=== PATIENT | male | born 1955 | race Caucasian/White ===

== ENCOUNTER 2019-03-16 10:57 | Inpatient (IN) | payer MEDICARE, OTHER ==
[~2019-03-16] VITALS: Ht 188 cm; Wt 89.8 kg
--- NOTE | 2019-03-16 11:00 | NUR ---
PT [id number], HOMELESS, PICKED UP AT THE [facility] TALKING TO HIMSELF, -SI, PT IS AAOX2, NOT IN RESPIRATORY DISTRESS, HOOKED TO MONITOR, KEPT RESTED AND COMFORTABLE. WILL CONTINUE TO MONITOR.
--- NOTE | 2019-03-16 11:02 | NUR ---
SEEN AND EXAMINED BY .
[2019-03-16] MEDS ORDERED: OLANZAPINE 10 MG VIAL IM ONE ×2 (11:10→11:30)
--- NOTE | 2019-03-16 11:10 | NUR ---
ER PHLEB AT BEDSIDE FOR BLOOD DRAW.
[2019-03-16 11:13] LABS: BASOPHILS # (AUTO) 0.1 /CMM (0.0-0.2); EOSINOPHILS % (AUTO) 0.2 % (0.0-6.0); HEMATOCRIT 40 % (39-51); HEMOGLOBIN 12.9 g/dL (13.5-17.5); LYMPHOCYTES # (AUTO) 1.2 /CMM (0.8-4.8); LYMPHOCYTES % (AUTO) 10.6 % (20.0-44.0); MEAN CORPUSCULAR HGB CONC 33 g/dl (31.0-36.0); MEAN CORPUSCULAR VOLUME 94 fL (80-96); MONOCYTES % (AUTO) 8.5 % (2.0-12.0); NEUTROPHILS # (AUTO) 9.1 /CMM (1.8-8.9); NEUTROPHILS % (AUTO) 79.7 % (43.0-81.0); PLATELET COUNT (AUTO) 259 /CMM (150-450); RED BLOOD CELL COUNT(AUTO) 4.22 MIL/uL (4.5-6.0); WHITE BLOOD COUNT (AUTO) 11.4 K/uL (4.3-11.0)
[2019-03-16 11:21] LABS: CALCIUM, SERUM 8.8 mg/dL (8.5-10.1); CARBON DIOXIDE 21 mmol/L (21-32); CHLORIDE 110 mmol/L (98-107); GLUCOSE 171 mg/dL (74-106); POTASSIUM 4.6 mmol/L (3.5-5.1); SODIUM SERUM 150 mmol/L (136-145); UREA NITROGEN, BLOOD 61 mg/dL (7-18)
[2019-03-16 11:23] LABS: CREATININE 7.7 mg/dL (0.6-1.3)
[2019-03-16 11:26] LABS: ALANINE AMINOTRANSFERASE 32 U/L (12-78); ALBUMIN 4.7 g/dL (3.4-5.0); ALKALINE PHOSPHATASE 110 U/L (46-116); ASPARTATE AMINOTRANSFERASE 191 U/L (15-37); BILIRUBIN,DIRECT 0.2 mg/dL (0.0-0.2); BILIRUBIN,TOTAL 1.1 mg/dL (0.2-1.0); TOTAL PROTEIN, SERUM 9.2 g/dL (6.4-8.2)
[2019-03-16 11:27] LABS: ACETAMINOPHEN 0 ug/ml (10-30); ALCOHOL, BLOOD < 3 mg/dL (0-0)
[2019-03-16] MEDS ORDERED: IV NS 0.9% 1,000 ML BAG IV ONE ×2 (11:30→12:30)
[2019-03-16] MEDS ORDERED: LORAZEPAM INJ 2 MG/ML VIAL ONE (11:30)
--- NOTE | 2019-03-16 11:45 | NUR ---
IV LINE ESTABLISHED.
[2019-03-16] MEDS ORDERED: LORAZEPAM INJ 2 MG/ML VIAL IV ONE ×2 (12:00→23:00)
[2019-03-16 12:10] LABS: APPEARANCE,URINE Cloudy (CLEAR); BILIRUBIN,URINE SMALL (NEGATIVE); BLOOD, URINE Moderate Ery/uL (NEGATIVE); COLOR,URINE Dark (YELLOW); KETONES,URINE Trace (NEGATIVE); LEUKOCYTE ESTERASE ,URINE Trace (NEGATIVE); NITRITE, URINE Negative (NEGATIVE); PROTEIN,URINE 100 mg/dl (NEGATIVE); UGLUCOSE Negative (NEGATIVE); UROBILINOGEN,URINE 0.2 EU/dL (0.2)
[2019-03-16 12:15] LABS: BACTERIA,URINE Rare /HPF (None Seen); SQUAMOUS EPITHELIAL CELL,UR Rare /HPF (None Seen)
--- NOTE | 2019-03-16 12:33 | NUR ---
CALLED [facility], ALMA CHACKO
--- NOTE | 2019-03-16 12:49 | NUR ---
117-2 TELE RENAL FAILURE, RICCO
--- NOTE | 2019-03-16 12:55 | NUR ---
REPORT GIVEN TO UZIEL QUINTANILLA FOR JULIANA. WITH ONGOING IVF.
[2019-03-16] MEDS ORDERED: IV D5W 1,000 ML IV ONE (12:59)
--- NOTE | 2019-03-16 13:05 | NUR ---
CALLED [facility]
[2019-03-16] MEDS ORDERED: Sodium Bicarbonate 150 MEQ in IV D5W 1,000 ML IV ONE (13:30)
--- NOTE | 2019-03-16 13:49 | NUR ---
CALLED [facility]
[2019-03-16 14:00] VITALS: BP 112/59
--- NOTE | 2019-03-16 14:00 | NUR ---
CATALOG LIBRARIAN NOTES PATIENT CAME IN VIA GURNEY. SEDATED IN THE ER. REPORT GIVEN TO OUR CN, JESSE FROM [facility] ER NURSE. REPORT AT BEDSIDE GIVEN WELL. PATIENT IS HOMELESS. ON TELE MONITOR, SR AT 75. FEW ABRASIONS NOTED, LEFT KNEE AND RIGHT ELBOW. POSITIVE FOR AMPHETAMINES. ADMISSION ORDERS PENDING, TRYING TO CONTACT DR CHACKO FOR ORDERS. BED LOCKED AND IN LOWEST POSITION. CALL LIGHT WITHIN REACH. WILL CONTINUE TO MONITOR CLOSELY
[2019-03-16] MEDS ORDERED: MAG HYDROX/AL HYDROX/SIMETH 30 ML UDC PO PRN (14:30)
[2019-03-16] MEDS ORDERED: ONDANSETRON HCL/PF 4 MG/2 ML VIAL IVP PRN (14:30)
[2019-03-16] MEDS ORDERED: MAGNESIUM HYDROXIDE 30 ML UDC PO PRN (14:30)
[2019-03-16] MEDS ORDERED: Z GUARD REMEDY 2 OZ OINT TP PRN (14:30)
--- NOTE | 2019-03-16 14:53 | NUR ---
RN NOTE RECEIVED ADMITTING ORDERS. PATIENT NPO FOR NOW. ADMITTING DX ACUTE RHABDOMYOLYSIS. NEPHRO CONSULT AND PSYCH EVAL PENDING.
[2019-03-16 16:00] VITALS: BP 105/52
--- NOTE | 2019-03-16 19:03 | NUR ---
RN CLOSING NOTE PATIENT STILL ASLEEP, NA BICARB STILL RUNNING AT 200ML/HR. NO SIGNS OF ANY SOB NOR PAIN AT THIS TIME. NO MEDS GIVEN. 1:1 SITTER. BED LOCKED AND IN LOWEST POSITION. CALL LIGHT WITHIN REACH. ENDORSED TO NOC SHIFT FOR JULIANA
[2019-03-16] MEDS: Sodium Bicarbonate 100 MEQ in IV D5W 1,000 ML IV PRN (19:59)
[2019-03-16 20:00] VITALS: BP 112/69
--- NOTE | 2019-03-16 22:46 | NUR ---
TELE-TD/PHOTOGRAPHIC SPECIALIST DIAZ CATH PLACED VIA STERILE PROCEDURE PT TOLERATED BUT IS VERY RESTLESS. URINE SENT TO LAB FOR WORK UP.
[2019-03-16 23:06] LABS: ALBUMIN 3.8 g/dL (3.4-5.0); BILIRUBIN,TOTAL 1.1 mg/dL (0.2-1.0); CALCIUM, SERUM 7.5 mg/dL (8.5-10.1); CREATININE 5.5 mg/dL (0.6-1.3); MAGNESIUM 2.2 mg/dL (1.8-2.4); POTASSIUM 3.2 mmol/L (3.5-5.1); TOTAL PROTEIN, SERUM 7.6 g/dL (6.4-8.2)
[2019-03-16 23:22] LABS: APPEARANCE,URINE SL CLOUDY (CLEAR); BILIRUBIN,URINE 1+ (NEGATIVE); BLOOD, URINE 3+ Ery/uL (NEGATIVE); COLOR,URINE AMBER (YELLOW); KETONES,URINE TRACE (NEGATIVE); LEUKOCYTE ESTERASE ,URINE NEGATIVE (NEGATIVE); NITRITE, URINE NEGATIVE (NEGATIVE); PH,URINE 5.5 (5.0-8.0); PROTEIN,URINE 3+ mg/dl (NEGATIVE); UGLUCOSE NEGATIVE (NEGATIVE); UROBILINOGEN,URINE 0.2 EU/dL (0.2)
[2019-03-16 23:30] LABS: BACTERIA,URINE Few /HPF (None Seen); SQUAMOUS EPITHELIAL CELL,UR Few /HPF (None Seen)
[2019-03-16 23:34] LABS: CREATININE, URINE 241.1 MG/DL (30.0-125.0); URINE TOTAL PROTEIN 270.8 mg/dL (0-11.9)
[2019-03-17] VITALS: BP 97/53
[2019-03-17 00:15] LABS: EOSINOPHIL,URINE None Seen
[2019-03-17 04:00] VITALS: BP 121/65
[2019-03-17] MEDS: Sodium Bicarbonate 100 MEQ in IV D5W 1,000 ML IV PRN ×2 (04:26→14:16)
[2019-03-17 07:11] LABS: ALBUMIN 3.4 g/dL (3.4-5.0); BILIRUBIN,TOTAL 1.1 mg/dL (0.2-1.0); CALCIUM, SERUM 7.5 mg/dL (8.5-10.1); CREATININE 4.2 mg/dL (0.6-1.3); MAGNESIUM 2.1 mg/dL (1.8-2.4); PHOSPHORUS 3.7 mg/dL (2.5-4.9); POTASSIUM 3.3 mmol/L (3.5-5.1)
--- NOTE | 2019-03-17 07:47 | NUR ---
RN NOTE: RECEIVED PATIENT IN BED, AWAKE, ALERT AND VERBALLY RESPONSIVE. RESPIRATION EVEN AND UNLABORED SATURATING 100% IN ROOM AIR. DENIED ANY PAIN. ON ROPE MAKING MACHINE OPERATOR SR HR= 71. PATIENT HAS A (R) AC IV SITE INFUSING D5W SODIUM BICARBONATE 100 MEQ AND PATIENT WAS TOLERATING IT WELL. AFEBRILE. SKIN WARM TO TOUCH. BED ALARMED AND LOCKED AT ALL TIMES. HOB ELEVATED. 1:1 SITTER NOTED. CALL LIGHT WITHIN REACH NEEDS ANTICIPATED.
[2019-03-17 07:48] LABS: BASOPHILS % (AUTO) 0.5 % (0.0-2.0); EOSINOPHILS % (AUTO) 0.7 % (0.0-6.0); HEMATOCRIT 36 % (39-51); HEMOGLOBIN 11.9 g/dL (13.5-17.5); LYMPHOCYTES # (AUTO) 1.5 /CMM (0.8-4.8); LYMPHOCYTES % (AUTO) 19.9 % (20.0-44.0); MEAN CORPUSCULAR HGB CONC 33 g/dl (31.0-36.0); MEAN CORPUSCULAR VOLUME 91 fL (80-96); MONOCYTES # (AUTO) 0.7 /CMM (0.1-1.30); NEUTROPHILS # (AUTO) 5.3 /CMM (1.8-8.9); NEUTROPHILS % (AUTO) 69.9 % (43.0-81.0); PLATELET COUNT (AUTO) 127 /CMM (150-450); RED BLOOD CELL COUNT(AUTO) 3.92 MIL/uL (4.5-6.0); WHITE BLOOD COUNT (AUTO) 7.6 K/uL (4.3-11.0)
[2019-03-17 08:00] VITALS: BP 103/43
--- NOTE | 2019-03-17 09:32 | NUR ---
RN NOTE: DR. BURDICK MADE ROUND AND INFORMED HIM THAT PATIENT WAS MORE AWAKE AND ALERT AND VERBALLY RESPONSIVE SINCE THE BEGINNING OF THE SHIFT. PER MD, OK TO START WITH FOOD AND A PSYCH CONSULT WAS ORDERED. CALLED AND SPOKE WITH ADDIE FROM [employer] AND INFORMED THEM ABOUT THE CONSULT FOR THE PATIENT. FACE SHEET WAS FAXED TO [facility] FAX #: [phone].
[2019-03-17] MEDS ORDERED: POTASSIUM CL. PREMIX PERIPHER. 50 ML IV SCH (09:34)
--- NOTE | 2019-03-17 10:15 | NUR ---
RN NOTE: US OF THE KIDNEYS WERE DONE AT THE BEDSIDE. PENDING RESULT.
[2019-03-17] MEDS ORDERED: POTASSIUM CHLORIDE 20 MEQ POWDER PACKET GT ONE (11:00)
--- NOTE | 2019-03-17 11:03 | NUR ---
RN NOTE: CALLED AND SPOKE WITH DR. BURDICK REGARDING THE PATIENT'S POTASSIUM OF 3.3 SARINA PENA, PHARMACIST CALLED AND SAID THAT DUE TO PATIENT'S ELEVATED BUN/CREATININE THE PHARMACY CAN NOT REPLACE IT PER PROTOCOL. DR. BURDICK WAS INFORMED THAT PATIENT RECEIVED A KCL 10MEQ IV X 1 BAG. AND PER MD, GIVE A KCL 20MEQ PO X1. ORDER NOTED AND CARRIED OUT. PATIENT MADE AWARE.
[2019-03-17] MEDS ORDERED: POTASSIUM CHLORIDE 20 MEQ TAB.PRT.SR PO ONE (11:30)
--- NOTE | 2019-03-17 11:44 | NUR ---
Social service consult requested by Dr. Mcdaniel for homelessness. Pt. is a 63 year old male who was admitted to [facility] for renal failure. STEVE met with pt. bedside. Pt. has a sitter bedside for safety. Pt. is alert and oriented x 3. Pt. states he is not homeless and rents a room at [address] in [facility]. Pt. has been living there for the past 2 to 3 months. Pt. would like to be discharged back home when medically cleared. Pt. denies suicidal and homicidal ideations and visual/auditory hallucinations at this time. Pt. states he has a diagnosis of Depression and takes medication but could not remember what they are. Pt. is pending a psychiatric evaluation. Pt. receives $1800/month in SSI. Pt. denies any drug or alcohol use. No other social service needs are requested at this time. SW is available, if needed. STEVE updated KAYLYN Patel regarding pt. not being homeless.
[2019-03-17 16:00] VITALS: BP 116/66
--- NOTE | 2019-03-17 19:46 | NUR ---
RN NOTE: BEDSIDE REPORT WAS GIVEN TO PM SHIFT NURSE FOR CONTINUITY OF CARE. PATIENT HAS BEEN VERY COOPERATIVE DURING THE DAYSHIFT. NO MORE SITTER AT THE BEDSIDE. BED ALARMED AND PATIENT ON CLOSE MONITORING WITH STAFF.
[2019-03-17 20:00] VITALS: BP 111/66
--- NOTE | 2019-03-17 20:27 | NUR ---
was seen by social service director for eval. Pt. is alert and oriented x 3. Pt. states he is not homeless and rents a room at [address] [facility] in [facility]. Pt. has been living there for the past 2 to 3 months. Pt. would like to be discharged back home when medically cleared. Pt. denies suicidal and homicidal ideations and visual/auditory hallucinations at this time. Pt. states he has a diagnosis of Depression and takes medication but could not remember what they are. Pt. is pending a psychiatric evaluation. Pt. receives $1800/month in SSI. Pt. denies any drug or alcohol use. Addendum: 03/17/19 at 2027 by KARLEY CODY RN Amended: Links added.
[2019-03-18] MEDS: Sodium Bicarbonate 100 MEQ in IV D5W 1,000 ML IV PRN (01:24)
[2019-03-18 04:00] VITALS: BP 136/72
[2019-03-18] MEDS: ACETAMINOPHEN 325 MG TABLET PO PRN ×2 (05:10→16:16)
[2019-03-18 06:24] LABS: BASOPHILS % (AUTO) 0.5 % (0.0-2.0); EOSINOPHILS % (AUTO) 0.6 % (0.0-6.0); HEMATOCRIT 32 % (39-51); HEMOGLOBIN 10.9 g/dL (13.5-17.5); LYMPHOCYTES # (AUTO) 1.2 /CMM (0.8-4.8); LYMPHOCYTES % (AUTO) 16.8 % (20.0-44.0); MEAN CORPUSCULAR HGB CONC 34 g/dl (31.0-36.0); MEAN CORPUSCULAR VOLUME 91 fL (80-96); MONOCYTES # (AUTO) 0.6 /CMM (0.1-1.30); NEUTROPHILS # (AUTO) 5.5 /CMM (1.8-8.9); NEUTROPHILS % (AUTO) 74.1 % (43.0-81.0); PLATELET COUNT (AUTO) 165 /CMM (150-450); RED BLOOD CELL COUNT(AUTO) 3.52 MIL/uL (4.5-6.0); WHITE BLOOD COUNT (AUTO) 7.4 K/uL (4.3-11.0)
[2019-03-18 06:58] LABS: ALBUMIN 2.9 g/dL (3.4-5.0); BILIRUBIN,TOTAL 0.6 mg/dL (0.2-1.0); CALCIUM, SERUM 7.7 mg/dL (8.5-10.1); CREATININE 1.8 mg/dL (0.6-1.3); MAGNESIUM 1.9 mg/dL (1.8-2.4); PHOSPHORUS 1.9 mg/dL (2.5-4.9); TOTAL PROTEIN, SERUM 6.5 g/dL (6.4-8.2)
--- NOTE | 2019-03-18 07:39 | NUR ---
RN OPENING NOTES RECEIVED PATIENT RESTING IN BED. HE IS AOX3, VERBAL, AND IS ANXIOUS TO GO HOME. HE IS EXPERIENCING LIP SMACKING BASED ON MY ASSESSMENT. HE IS ON RA, SHOWS NO S/SX OF SOB. HE HAS A FC, INTACT, PATENT. HE IS ON A MECHANICAL SOFT DIET, WILL MONITOR FOR ASPIRATION. RFA 18 G INFUSING D5W WITH 100 MEQ OF BICARB AT 125 ML/HR. PSYCH CONSULT PENDING. SAFETY MEASURES HAVE BEEN IMPLEMENTED, CALL LIGHT WITHIN REACH, BED IN LOWEST AND LOCKED POSITION, SIDE RAILS UP X2, WILL CONTINUE TO MONITOR FOR ANY CHANGES.
[2019-03-18 08:00] VITALS: BP 141/69
[2019-03-18] MEDS ORDERED: POTASSIUM PHOSPHATE MM 5 MMOL in IV D5W 100 ML IV SCH (09:00)
[2019-03-18] MEDS ORDERED: POTASSIUM PHOSPHATE MM 15 MMOL in IV D5W 250 ML IV SCH (09:00)
[2019-03-18] MEDS: POTASSIUM CHLORIDE 20 MEQ TAB.PRT.SR PO SCH (09:10)
[2019-03-18] MEDS: GABAPENTIN 300 MG CAPSULE PO SCH ×3 (09:10→17:36)
[2019-03-18] MEDS: POTASSIUM PHOSPHATE MM 7.5 MMOL in IV D5W 100 ML IV SCH ×2 (09:23→12:56)
[2019-03-18] MEDS: LORAZEPAM 1 MG TABLET PO PRN ×3 (11:43→18:44)
[2019-03-18 12:00] VITALS: BP 141/69
--- NOTE | 2019-03-18 13:30 | NUR ---
PATIENT HAS BEEN SEEN BY DR. CARRION
[2019-03-18] MEDS: QUETIAPINE FUMARATE 25 MG TABLET PO PRN ×2 (13:44→19:29)
[2019-03-18 16:00] VITALS: BP 141/63
--- NOTE | 2019-03-18 19:56 | NUR ---
PATIENT IS RESTING IN BED COMFORTABLY. HE WAS ANXIOUS AND RESTLESS ALL THROUGHOUT THE DAY. SAFETY MEASURES HAVE BEEN IMPLEMENTED, CALL LIGHT WITHIN REACH, BED IN LOWEST AND LOCKED POSITION, SIDE RAILS UP X2, PATIENT HAS BEEN ENDORSED TO NIGHTSHIFT NURSE.
[2019-03-18 20:00] VITALS: BP 134/80
[2019-03-18] MEDS ORDERED: LORAZEPAM INJ 2 MG/ML VIAL IV ONE (20:30)
[2019-03-19 04:00] VITALS: BP 155/85
--- NOTE | 2019-03-19 07:35 | NUR ---
MS/RN OPENING NOTES RECEIVED PATIENT IN BED SLEEPING COMFORTABLY. EASILY AROUSABLE. PATIENT IS ALERT AND ORIENTED X3. NO PAIN OR ACUTE DISTRESS AT THIS TIME. RESPIRATION EVEN AND UNLABORED. SKIN IS DRY WARM TO TOUCH. PATIENT NOTED WITH FC, INTACT AND PATENT. IV ACCESS ON RIGHT FA #18G. INTACT AND PATENT. FLUSHING WELL. NO S/S OF INFECTION OR INFILTRATION. ALL NEEDS ANTICIPATED. CALL LIGHT WITHIN REACHED. BED LOCKED AND IN LOWEST POSITION. SAFETY MAINTAINED. BED ALARM ARMED. FREQUENT VISUAL CHECKS. PLAN OF CARE DISCUSSED WITH PATIENT. WILL CONTINUE TO MONITOR CLOSELY.
[2019-03-19 08:00] VITALS: BP 135/75
[2019-03-19 08:00] LABS: BASOPHILS % (AUTO) 0.6 % (0.0-2.0); EOSINOPHILS % (AUTO) 1.4 % (0.0-6.0); HEMATOCRIT 36 % (39-51); HEMOGLOBIN 12.1 g/dL (13.5-17.5); LYMPHOCYTES # (AUTO) 1.5 /CMM (0.8-4.8); LYMPHOCYTES % (AUTO) 22.6 % (20.0-44.0); MEAN CORPUSCULAR HGB CONC 34 g/dl (31.0-36.0); MEAN CORPUSCULAR VOLUME 92 fL (80-96); MONOCYTES # (AUTO) 0.5 /CMM (0.1-1.30); MONOCYTES % (AUTO) 7.8 % (2.0-12.0); NEUTROPHILS # (AUTO) 4.5 /CMM (1.8-8.9); NEUTROPHILS % (AUTO) 67.6 % (43.0-81.0); PLATELET COUNT (AUTO) 175 /CMM (150-450); RED BLOOD CELL COUNT(AUTO) 3.91 MIL/uL (4.5-6.0); WHITE BLOOD COUNT (AUTO) 6.6 K/uL (4.3-11.0)
[2019-03-19 08:32] LABS: BILIRUBIN,TOTAL 0.6 mg/dL (0.2-1.0); CALCIUM, SERUM 8.3 mg/dL (8.5-10.1); CREATININE 1.2 mg/dL (0.6-1.3); MAGNESIUM 1.7 mg/dL (1.8-2.4); POTASSIUM 3.6 mmol/L (3.5-5.1); TOTAL PROTEIN, SERUM 6.9 g/dL (6.4-8.2)
[2019-03-19] MEDS: LORAZEPAM 1 MG TABLET PO PRN (09:19)
[2019-03-19] MEDS: QUETIAPINE FUMARATE 25 MG TABLET PO PRN (09:19)
[2019-03-19] MEDS: GABAPENTIN 300 MG CAPSULE PO SCH ×2 (09:19→12:17)
[2019-03-19] MEDS: POTASSIUM CHLORIDE 20 MEQ TAB.PRT.SR PO SCH (09:19)
--- NOTE | 2019-03-19 10:20 | NUR ---
MS/ RN NOTES DIAZ CATHETER WAS REMOVED PER DR. BURDICK, AND ALSO TO MONITOR IF PATIENT WILL BE ABLE TO VOID ON HIS OWN. PATIENT CONTINUES TO REMAIN IN STABLE CONDITION AT THIS TIME. WILL CONTINUE TO MONITOR.
[2019-03-19] MEDS ORDERED: K PHOS NEUTRAL 250 MG TABLET PO ONE (11:00)
--- NOTE | 2019-03-19 11:00 | NUR ---
WOUND CARE CONSULT: PATIENT PRESENTS WITH LT KNEE ABRASION ,PRESENT ON ADMISSION, PATIENT STATED THAT HE FALL FEW DAYS AGO CURRENT HEIDE SCORE 15 , TREATMENT RECOMMENDATION DONE AND DISCUSSED WITH NURSING STAFF , IN AGREEMENT WITH PLAN OF CARE ,F\C IN PLACE Addendum: 03/19/19 at 1109 by ALOK CHAIREZ RN Amended: Links added.
--- NOTE | 2019-03-19 15:30 | NUR ---
MS/APPRENTICESHIP TRAINING REPRESENTATIVE NOTES PATIENT WAS HELPED DRESS TO PREPARE FOR DISCHARGE. PATIENT WAS GIVEN PANTS FROM [facility]. DISCHARGE PAPERS WAS GIVEN AND WAS SIGNED BY PATIENT. SKIN ASSESSMENT DONE. PHOTOS WAS TAKEN AND WAS PLACED IN THE CHART. PATIENT WAS ACCOMPANIED TO THE LOBBY OF THE HOSPITAL. PATIENT ABLE TO AMBULATE BY HIMSELF. LEFT THE HOSPITAL IN STABLE CONDITION.
== END 2019-03-19 15:10 | disposition home or self-care (01) | DRG 557 ==
LOC: ER 10:59 → TELE1 12:57 → TELE-TD 13:07 → MEDSG1 03-17 10:04
PROVIDERS: ADMIT Internal Medicine; ATTEND Internal Medicine
DX: M62.82 Rhabdomyolysis (principal); N17.0 Acute kidney failure with tubular necrosis; E87.0 Hyperosmolality and hypernatremia; F23 Brief psychotic disorder; G61.81 Chronic inflammatory demyelinating polyneuritis; F32.9 Major depressive disorder, single episode, unspecified; Z59.0 Homelessness; N18.9 Chronic kidney disease, unspecified; I12.9 Hypertensive chronic kidney disease with stage 1 through stage 4 chronic kidney disease, or unspecified chronic kidney disease; R74.0 Nonspecific elevation of levels of transaminase and lactic acid dehydrogenase [LDH]; Z72.89 Other problems related to lifestyle; F25.9 Schizoaffective disorder, unspecified; G89.29 Other chronic pain
CPT/HCPCS: 36415; 76770-TC; 80048-TC; 80053-TC; 80061-TC; 80076-TC; 80305; 81000-TC; 82550-TC; 82570-TC; 83735-TC; 84100-TC; 84155-TC; 84300-TC; 84484-TC; 85025-TC; 87081-TC; 87086-TC; 87186-TC; G0378; G0480; J2060; J3480; J3490; J7030; J7060; J7070

== ENCOUNTER 2019-08-02 18:55 | Inpatient (IN) | payer MEDICARE, OTHER ==
[~2019-08-02] VITALS: Ht 185.4 cm; Wt 89.4 kg
--- NOTE | 2019-08-02 19:15 | NUR ---
PT CAME INTO THE ED FOR RECTAL BLEED, +NV, WEAKNESS SINCE THIS MORNING. PT AAOX4, VSS, BREATHING EVEN AND UNLABORED ON ROOM AIR W/ NAD NOTED. PT CONNECTED TO THE MONITOR AND POX.
[2019-08-02] MEDS ORDERED: ONDANSETRON HCL/PF 4 MG/2 ML VIAL ONE (19:23)
[2019-08-02] MEDS ORDERED: IV NS 0.9% 1,000 ML BAG IV ONE ×2 (19:30→20:30)
[2019-08-02] MEDS ORDERED: ONDANSETRON HCL/PF 4 MG/2 ML VIAL IVP ONE (19:30)
[2019-08-02 19:38] LABS: BASOPHILS # (AUTO) 0.1 /CMM (0.0-0.2); BASOPHILS % (AUTO) 0.7 % (0.0-2.0); EOSINOPHILS % (AUTO) 0.1 % (0.0-6.0); HEMATOCRIT 32 % (39-51); HEMOGLOBIN 10.8 g/dL (13.5-17.5); LYMPHOCYTES % (AUTO) 12.9 % (20.0-44.0); MEAN CORPUSCULAR HGB CONC 34 g/dl (31.0-36.0); MEAN CORPUSCULAR VOLUME 93 fL (80-96); MONOCYTES # (AUTO) 0.5 /CMM (0.1-1.30); MONOCYTES % (AUTO) 7.1 % (2.0-12.0); NEUTROPHILS # (AUTO) 5.9 /CMM (1.8-8.9); NEUTROPHILS % (AUTO) 79.2 % (43.0-81.0); PLATELET COUNT (AUTO) 212 /CMM (150-450); RED BLOOD CELL COUNT(AUTO) 3.47 MIL/uL (4.5-6.0); WHITE BLOOD COUNT (AUTO) 7.4 K/uL (4.3-11.0)
[2019-08-02 19:48] LABS: CALCIUM, SERUM 9.2 mg/dL (8.5-10.1)
[2019-08-02 19:53] LABS: BILIRUBIN,DIRECT 0.1 mg/dL (0.0-0.2); BILIRUBIN,TOTAL 0.9 mg/dL (0.2-1.0); TOTAL PROTEIN, SERUM 8.7 g/dL (6.4-8.2)
[2019-08-02 20:14] LABS: OCCULT BLOOD STOOL NEGATIVE (NEGATIVE)
--- NOTE | 2019-08-02 20:15 | NUR ---
PT CHANGED INTO A NEW GOWN. DIARRHEA NOTED. MILD ODOR.
[2019-08-02] MEDS ORDERED: LORAZEPAM INJ 2 MG/ML VIAL ONE (20:30)
[2019-08-02] MEDS ORDERED: LORAZEPAM INJ 2 MG/ML VIAL IV ONE (20:30)
--- NOTE | 2019-08-02 20:52 | NUR ---
PT TAKEN TO CT
--- NOTE | 2019-08-02 20:59 | NUR ---
PT BACK FROM CT
--- NOTE | 2019-08-02 21:52 | NUR ---
XRAY AT BEDSIDE
--- NOTE | 2019-08-02 22:02 | NUR ---
EKG AT BEDSIDE
[2019-08-02] MEDS ORDERED: ACETAMINOPHEN 325 MG TABLET PO PRN (23:00)
[2019-08-02] MEDS ORDERED: HYDROCODONE/APAP 5/325MG 1 EACH TABLET PO PRN (23:00)
[2019-08-02] MEDS ORDERED: Z GUARD REMEDY 2 OZ OINT TP PRN (23:00)
[2019-08-02] MEDS ORDERED: ONDANSETRON HCL/PF 4 MG/2 ML VIAL IVP PRN (23:00)
[2019-08-02] MEDS ORDERED: MAG HYDROX/AL HYDROX/SIMETH 30 ML UDC PO PRN (23:00)
[2019-08-02] MEDS ORDERED: ZOLPIDEM TARTRATE 5 MG TABLET PO PRN (23:00)
--- NOTE | 2019-08-02 23:27 | NUR ---
REPORT GIVEN TO UZIEL KAMARA
[2019-08-02 23:32] LABS: APPEARANCE,URINE Cloudy (CLEAR); BILIRUBIN,URINE SMALL (NEGATIVE); BLOOD, URINE Large Ery/uL (NEGATIVE); COLOR,URINE Brown (YELLOW); KETONES,URINE Trace (NEGATIVE); LEUKOCYTE ESTERASE ,URINE Negative (NEGATIVE); NITRITE, URINE Negative (NEGATIVE); PROTEIN,URINE >=300 mg/dl (NEGATIVE); UGLUCOSE Negative (NEGATIVE); UROBILINOGEN,URINE 0.2 EU/dL (0.2)
[2019-08-02 23:36] VITALS: BP 116/70
--- NOTE | 2019-08-02 23:36 | NUR ---
MICROBIOLOGY QUALITY CONTROL TECHNICIANHYDRAULIC PLUMBER NOTES Received patient from ER via [facility] accompanied by 2 ER staff. Admitted to Telemetry 323-2 due to rhabdomylosis under the service of Dr. Zapata. Transferred patient from [facility] to bed, patient noted ambulatory with steady gait. Admission routine done. Patient's belongings inventory completed by the assigned DIRECTOR OF ASSESSING. Skin assessment done, patient claimed not skin issues at this time, disseminated small skin abrasions noted. Kept on bed clean, dry and comfortable. No med recon done at ER, patient still in the process of writing down his medications. Initiated IVF as ordered. On fall and aspiration precautions. Call light within easy reach. Will continue to monitor accordingly.
--- NOTE | 2019-08-03 | NUR ---
TERMINAL PRESS OPERATOR NOTES On tele monitor with Sinus Tach noted, patient awake, uneasy in the room. Decreased stimuli, keep patient's room cool, decreased lights.
[2019-08-03] MEDS: IV NS 0.9% 1,000 ML IV PRN (00:21)
--- NOTE | 2019-08-03 00:33 | NUR ---
RN NOTES Instructed patient on stool collection for laboratory as ordered, patient verbalized understanding. Hat provided, placed in the bowl of patient's toilet.
[2019-08-03 00:41] LABS: BACTERIA,URINE Many /HPF (None Seen); SQUAMOUS EPITHELIAL CELL,UR Rare /HPF (None Seen)
--- NOTE | 2019-08-03 01:43 | NUR ---
RN NOTES Patient awake talking to self lying across the bed. Patient claimed he is fine and comfortable. Patient noted with blood all over the gown, IV line pulled out, complete and intact, pressure applied to the bleeding site. Patient walked to the bathroom, claimed he was asleep and he his not aware of what happened. Reinserted IV line, good blood return noted after 4 attempts. Secured with tape accordingly. On fall precautions. Kept bed low and locked, bed alarm on. Will continue to monitor accordingly.
--- NOTE | 2019-08-03 03:20 | NUR ---
RN NOTES Patient is acting out and claiming he can not sleep due to thought in his mind. Patient claimed he needs his medications but patient unable provide his list of meds. Patient claimed of sign out but per assessment patient is unsafe to be granted on his wish. Notified on sobeida Zapata with recommendation to call psych. Called Dr. Kumar with order of Temazepam 15mg PO QHS. Verified order with pharmacy. Initial dose given at this time.
[2019-08-03] MEDS: TEMAZEPAM 15 MG CAPSULE PO PRN ×2 (03:29→22:02)
[2019-08-03] MEDS ORDERED: SUVO20TA PO (04:20)
[2019-08-03] MEDS ORDERED: BUPR1TAB SL (04:20)
--- NOTE | 2019-08-03 05:14 | NUR ---
RN NOTES Patient pacing in the room and in the hallway, able to be redirected back to bed. Offered snacks and turn on TV to distract patient. Patient remained anxious and claiming having bizarre thoughts that prevents him from sleeping. Patient refused to share his thoughts. Patient claimed he has not plans of hurting himself. Will continue to monitor accordingly.
[2019-08-03] MEDS ORDERED: DOXE10OR2 PO (06:10)
--- NOTE | 2019-08-03 06:26 | NUR ---
IT INVESTMENT/PORTFOLIO MANAGER CLOSING NOTES Patient awake on bed, on RA. Patient pulled off, unsafe to resume at this time patient is still hyperactive in the room. IV line temporarily disconnected as patient is pacing and hyperactively roaming around the room back and forth. Patient is redirectable, able to obey commands but unable to ease himself and stayed calm on bed. Monitored accordingly. Patient mentioned medications he is taking, noted. Will endorsed to AM RN for reconciliation.
[2019-08-03 07:33] LABS: BASOPHILS # (AUTO) 0.1 /CMM (0.0-0.2); BASOPHILS % (AUTO) 0.8 % (0.0-2.0); EOSINOPHILS % (AUTO) 0.6 % (0.0-6.0); HEMATOCRIT 29 % (39-51); HEMOGLOBIN 9.8 g/dL (13.5-17.5); LYMPHOCYTES # (AUTO) 2.2 /CMM (0.8-4.8); MEAN CORPUSCULAR HGB CONC 34 g/dl (31.0-36.0); MEAN CORPUSCULAR VOLUME 91 fL (80-96); MONOCYTES # (AUTO) 0.7 /CMM (0.1-1.30); MONOCYTES % (AUTO) 8.6 % (2.0-12.0); NEUTROPHILS # (AUTO) 5.5 /CMM (1.8-8.9); PLATELET COUNT (AUTO) 197 /CMM (150-450); RED BLOOD CELL COUNT(AUTO) 3.16 MIL/uL (4.5-6.0); WHITE BLOOD COUNT (AUTO) 8.6 K/uL (4.3-11.0)
[2019-08-03 07:49] LABS: ALBUMIN 3.7 g/dL (3.4-5.0); BILIRUBIN,TOTAL 0.9 mg/dL (0.2-1.0); CALCIUM, SERUM 8.4 mg/dL (8.5-10.1); CREATININE 3.8 mg/dL (0.6-1.3); MAGNESIUM 1.8 mg/dL (1.8-2.4); POTASSIUM 4.3 mmol/L (3.5-5.1); TOTAL PROTEIN, SERUM 7.7 g/dL (6.4-8.2)
[2019-08-03 08:00] VITALS: BP 125/83
[2019-08-03] MEDS ORDERED: ROPI5TAB PO (12:04)
[2019-08-03] MEDS ORDERED: GABA800T11 PO (12:04)
[2019-08-03] MEDS ORDERED: ROSU5TAB PO (12:04)
[2019-08-03] MEDS ORDERED: DOXA4TAB2 PO (12:04)
[2019-08-03] MEDS ORDERED: DULO60CA45 PO (12:04)
[2019-08-03] MEDS ORDERED: ABAC1TAB15 PO (12:04)
[2019-08-03 16:00] VITALS: BP 146/84
[2019-08-03] MEDS: NICOTINE PATCH (21MG) 21 MG PATCH.TD24 TD SCH (17:30)
[2019-08-03] MEDS: LORAZEPAM INJ 2 MG/ML VIAL IV PRN (18:31)
--- NOTE | 2019-08-03 19:10 | NUR ---
MS RN OPENING NOTES Received patient awake, talking to self. Aggressively walking around the room. No sitter available at this time. Patient able to follow commands but unable to remain calm and stay in place. Will continue to monitor accordingly.
[2019-08-03 20:00] VITALS: BP 158/89
--- NOTE | 2019-08-03 20:26 | NUR ---
MS RN OPENING NOTES Patient noted washing his short pants in the sink. Per patient, he peed on his pants. Ensured spillage on the floor. Notified EVS to follow up cleaning the floor. Patient is aggressively walking around the room back and fort. Held IVF at this time for safety reason. Patient noted drinking fluids, provided more fluids for patient to take.
[2019-08-04] MEDS: LORAZEPAM INJ 2 MG/ML VIAL IV PRN ×2 (01:23→13:10)
[2019-08-04] MEDS ORDERED: HALOPERIDOL LACTATE INJ 5 MG/ML VIAL IV PRN (03:30)
--- NOTE | 2019-08-04 03:35 | NUR ---
MS RN NOTES Patient noted screaming on top of his lungs. Patient's head across the edge of bed while the lower extremities on the opposite side. Patient is jerking his whole body back and fort like a seesaw. Patient is not responding to tapping of shoulders. TECHNICAL EXPERT present in the room. Patient's head is about to hit the floor during his body jerking. Attempted to reposition patient back parallel to bed but patient was furious and became aggressive. Patient threw his pitcher of water with ice on the floor. Yelling on top of his lungs and very furious. Code nicole was called. Security guards able to put the patient back to bed. respiratory supervisor attempted to deescalate patient. physically impaired teacher MD notified with orders noted and carried out. Patient noted sitting on chair just outside his room angrily pointing to the nurse accusing of hitting him. Explained to patient the scenario just happened. Patient acknowledge is behavior and started to be apologetic. Guided patient back to bed, no physical force needed. Patient started to follow simple commands. Administered Haldol 2mg IV as ordered. Offered fluids to patient. Kept patient on bed comfortably. Notified head of loss prevention MD of the update, with order to held crisis team at this time. Will continue to monitor the patient accordingly.
--- NOTE | 2019-08-04 03:58 | NUR ---
MS RN NOTES Patient noted having a nightmare. Earlier the patient claimed he was dreaming that "somebody is attacking this building". Ensured patient's safety, kept patient on bed as much as possible to prevent from hitting himself to hard objects or on the floor. Patient is noted asleep while having the bizarre behavior. Will continue to monitor accordingly.
--- NOTE | 2019-08-04 06:35 | NUR ---
MS RN CLOSING NOTES Patient asleep on bed, with frequent screaming and body jerking. On RA, no SOB/respiratory distress noted at this time. No apparent s/sx of discomfort at this time. Kept on bed clean, dry and comfortable. On fall and aspiration precautions. Call light within easy reach. Endorsed to the next shift.
--- NOTE | 2019-08-04 07:30 | NUR ---
RN OPENING NOTES RECEIVED PATIENT IN BED ASLEEP WITH FREQUENT SCREAMING, PATIENT BEEN LIKE THIS NIGHT NURSE PER REPORT. NOT IN ANY FORM OF DISTRESS. NO SOB. NO S/S OF PAIN OR DISCOMFORT. IV ACCESS INTACT AND PATENT. SITTER AT BEDSIDE FOR SAFETY. BED IN LOW/LOCKED POSITION, BED ALARM ON, SIDERAILS UPX2, CALL LIGHT IN REACH. WILL CONT TO MONITOR ACCORDINGLY.
--- NOTE | 2019-08-04 08:00 | NUR ---
rn notes patient refused vital signs check. explained risk and benefits 3x but still refused. yelling " get out of here!" "i dont want anybody watching me in this room!". sitter present inside the room for safety.
[2019-08-04] MEDS: NICOTINE PATCH (21MG) 21 MG PATCH.TD24 TD SCH (09:00)
--- NOTE | 2019-08-04 09:00 | NUR ---
rn notes patient agitated. refused skin assessment at this time.
--- NOTE | 2019-08-04 09:15 | NUR ---
rn notes Patient was agitated and wanted to leave AMA. Asked patient the reason for wanting to leave AMA. Per patient, "i was asking for Bipap at night but they didnt give me the Bipap!". Patient signed AMA form.
--- NOTE | 2019-08-04 10:00 | NUR ---
rn notes patient changed his mind about leaving AMA. Will notify Claudy Greco NP about the Bipap
--- NOTE | 2019-08-04 10:27 | NUR ---
OTR OWNER OPERATOR received a call from pt's DPOA [place] Lance informing OTR OWNER OPERATOR that he wants to come to the hospital tomorrow at 2PM to discuss pt's discharge plan. Per JAMESON Lidno, pt. is unable to care for himself at home. Pt resides alone and has no assistance. Pt has been living alone for the 6 months and has been in bed most of the 6 months, per [place]. [facility] informed [place] that pt. is wanting to leave AMA and if he give him a call to perhaps encourage pt. to stay and not leave AMA. [place] will call the pt. and follow up with OTR OWNER OPERATOR.
[2019-08-04 12:44] LABS: BASOPHILS # (AUTO) 0.1 /CMM (0.0-0.2); BASOPHILS % (AUTO) 1.2 % (0.0-2.0); EOSINOPHILS % (AUTO) 1.4 % (0.0-6.0); HEMATOCRIT 29 % (39-51); HEMOGLOBIN 9.9 g/dL (13.5-17.5); LYMPHOCYTES # (AUTO) 1.3 /CMM (0.8-4.8); LYMPHOCYTES % (AUTO) 22.9 % (20.0-44.0); MEAN CORPUSCULAR HGB CONC 34 g/dl (31.0-36.0); MEAN CORPUSCULAR VOLUME 92 fL (80-96); MONOCYTES # (AUTO) 0.6 /CMM (0.1-1.30); MONOCYTES % (AUTO) 10.1 % (2.0-12.0); NEUTROPHILS # (AUTO) 3.7 /CMM (1.8-8.9); NEUTROPHILS % (AUTO) 64.4 % (43.0-81.0); PLATELET COUNT (AUTO) 194 /CMM (150-450); WHITE BLOOD COUNT (AUTO) 5.7 K/uL (4.3-11.0)
[2019-08-04 12:59] LABS: ALBUMIN 3.4 g/dL (3.4-5.0); BILIRUBIN,TOTAL 0.8 mg/dL (0.2-1.0); CALCIUM, SERUM 8.4 mg/dL (8.5-10.1); CREATININE 1.7 mg/dL (0.6-1.3); MAGNESIUM 1.9 mg/dL (1.8-2.4); PHOSPHORUS 2.5 mg/dL (2.5-4.9); POTASSIUM 4.3 mmol/L (3.5-5.1); TOTAL PROTEIN, SERUM 7.3 g/dL (6.4-8.2)
[2019-08-04] MEDS: GABAPENTIN 400 MG CAPSULE PO SCH ×3 (13:10→21:24)
[2019-08-04] MEDS ORDERED: LAMIVUDI PO SCH (14:00)
[2019-08-04] MEDS ORDERED: ABACAVIR PO SCH (14:00)
[2019-08-04] MEDS ORDERED: DOLUTEGRAVIR PO SCH (14:00)
[2019-08-04] MEDS ORDERED: KEY,NONCONTROL,TO KEEP IN PYXI 1 EA MC ONE (17:36)
[2019-08-04] MEDS: NALOXONE HCL SL SCH (17:39)
[2019-08-04] MEDS: BUPRENORPHINE HCL SL SCH (17:39)
[2019-08-04] MEDS: ATORVASTATIN 10 MG TABLET PO SCH (17:39)
[2019-08-04] MEDS: IV NS 0.9% 1,000 ML IV PRN (18:13)
--- NOTE | 2019-08-04 19:15 | NUR ---
RN OPENING NOTES SITTER AT BEDSIDE. REPORT RECIEVED FROM JJ TRIPLETT. PATIENT IN NO APPARENT DISTRESS BREATHING EVEN AND UNLABORED. BED IN LOW/LOCKED POSITION, SIDERAILS UPX2, CALL LIGHT IN REACH. WILL CONT TO MONITOR.
--- NOTE | 2019-08-04 19:30 | NUR ---
RN CLOSING NOTES PATIENT IN STABLE CONDITION. ALL NEEDS ATTENDED AND PROVIDED. ALL DUE MEDS GIVEN ORDERED. KEPT PATIENT SAFE AND COMFORTABLE. SITTER AT BEDSIDE FOR SAFETY. BED IN LOW/LOCKED POSITION, SIDERAILS UPX2, CALL LIGHT IN REACH. ENDORSED TO NIGHT RN FOR JULIANA.
--- NOTE | 2019-08-04 19:30 | NUR ---
RN NOTES NARCOTIC HOME MEDS (ZUBSOLV) PLACED IN NARCOTIC BOX IN MED ROOM WITNESSED AND ENDORSED TO UZIEL CHEUNG.
[2019-08-04 20:00] VITALS: BP 155/98
[2019-08-04] MEDS: QUETIAPINE FUMARATE 100 MG TABLET PO SCH (21:24)
--- NOTE | 2019-08-04 21:50 | NUR ---
requip not available pt went down to smoke. requip not stocked in [facility], or in patients cassette dose non administered' patient left unit to go to smoke with mikala venegas.
[2019-08-05] VITALS: BP 107/65
[2019-08-05] MEDS: IV NS 0.9% 1,000 ML IV PRN ×3 (05:29→23:05)
--- NOTE | 2019-08-05 06:30 | NUR ---
RN CLOSING NOTES SITTER AT BEDSIDE. PATIENT IN NO APPARENT DISTRESS BREATHING EVEN AND UNLABORED. BED IN LOW/LOCKED POSITION, SIDERAILS UPX2, CALL LIGHT IN REACH.
[2019-08-05 07:04] LABS: BASOPHILS % (AUTO) 0.8 % (0.0-2.0); EOSINOPHILS % (AUTO) 2.8 % (0.0-6.0); HEMATOCRIT 28 % (39-51); HEMOGLOBIN 9.6 g/dL (13.5-17.5); LYMPHOCYTES # (AUTO) 1.7 /CMM (0.8-4.8); LYMPHOCYTES % (AUTO) 37.3 % (20.0-44.0); MEAN CORPUSCULAR HGB CONC 35 g/dl (31.0-36.0); MEAN CORPUSCULAR VOLUME 92 fL (80-96); MONOCYTES # (AUTO) 0.4 /CMM (0.1-1.30); MONOCYTES % (AUTO) 8.5 % (2.0-12.0); NEUTROPHILS # (AUTO) 2.2 /CMM (1.8-8.9); NEUTROPHILS % (AUTO) 50.6 % (43.0-81.0); PLATELET COUNT (AUTO) 185 /CMM (150-450); RED BLOOD CELL COUNT(AUTO) 3.01 MIL/uL (4.5-6.0); WHITE BLOOD COUNT (AUTO) 4.4 K/uL (4.3-11.0)
--- NOTE | 2019-08-05 07:15 | NUR ---
RN OPENING NOTES RECEIVED PATIENT IN BED RESTING. PATIENT IN CALM MANNER. A/OX3, ABLE TOMAKE NEEDS KNOWN. SITTER AT BEDSIDE FOR SAFETY. NOT IN ANY FORM OF DISTRESS. NO SOB. DENIED PAIN OR DISCOMFORT AT THIS TIME. NEEDS ATTENDED. PER PATIENT, HE FELT BETTER TODAY BECAUSE HE USED THE CPAP MACHINE LAST NIGHT AND SLEPT WELL. KEPT PATIENT SAFE AND COMFORTABLE. BED IN LOW/LOCKED POSIITON, SIDERAILS UPX2, CALL LIGHT IN REACH. WILL CONT TO MONITOR ACCORDINGLY.
[2019-08-05 07:38] LABS: ALBUMIN 3.2 g/dL (3.4-5.0); BILIRUBIN,TOTAL 0.7 mg/dL (0.2-1.0); CALCIUM, SERUM 8.2 mg/dL (8.5-10.1); CREATININE 1.3 mg/dL (0.6-1.3); MAGNESIUM 1.8 mg/dL (1.8-2.4); PHOSPHORUS 2.8 mg/dL (2.5-4.9); POTASSIUM 4.2 mmol/L (3.5-5.1)
[2019-08-05 08:07] LABS: COMPLEMENT C3, SERUM 109 mg/dL (82-167); COMPLEMENT C4, SERUM 23 mg/dL (14-44)
[2019-08-05 08:14] VITALS: BP 138/90
[2019-08-05] MEDS ORDERED: KEY,NONCONTROL,TO KEEP IN PYXI 1 EA MC ONE ×3 (08:19→21:26)
[2019-08-05] MEDS: DOXAZOSIN MESYLATE (4 MG) 4 MG TABLET PO SCH (08:22)
[2019-08-05] MEDS: DULOXETINE HCL 30 MG CAPSULE.DR PO SCH (08:23)
[2019-08-05] MEDS: NALOXONE HCL SL SCH (08:23)
[2019-08-05] MEDS: BUPRENORPHINE HCL SL SCH (08:23)
[2019-08-05] MEDS: GABAPENTIN 400 MG CAPSULE PO SCH ×4 (08:24→21:19)
[2019-08-05] MEDS: QUETIAPINE FUMARATE 25 MG TABLET PO SCH (08:25)
[2019-08-05] MEDS: NICOTINE PATCH (21MG) 21 MG PATCH.TD24 TD SCH (09:00)
[2019-08-05 09:07] LABS: *ANA ANTI-CENTROMERE B AB <0.2 AI (0.0-0.9); *ANA ANTI-DNA(DS) AB, QN <1 IU/mL (0-9); *ANA ANTI-JO-1 <0.2 AI (0.0-0.9); *ANA ANTICHROMATIN ANTIBODY <0.2 AI (0.0-0.9); *ANA RNP ANTIBODIES 0.2 AI (0.0-0.9); *ANA SJOGREN'S ANTI-SS-A 0.2 AI (0.0-0.9); *ANA SJOGREN'S ANTI-SS-B <0.2 AI (0.0-0.9); *ANAANTI-SCLERODERMA-70 AB <0.2 AI (0.0-0.9); *ANASMITH AB <0.2 AI (0.0-0.9)
--- NOTE | 2019-08-05 10:00 | NUR ---
rn notes skin assessment done. small minor abrasions and bruises all over the body. per patient, no open wounds. refused to take dress off for thorough skin assessment. also refused skin photos.
[2019-08-05 10:16] LABS: PTH, INTACT 67 pg/mL (15-65)
[2019-08-05 11:07] LABS: *SPE A/G RATIO 0.9 (0.7-1.7); *SPE ALBUMIN 3.2 g/dL (2.9-4.4); *SPE ALPHA-1-GLOBULIN 0.2 g/dL (0.0-0.4); *SPE ALPHA-2-GLOBULIN 0.8 g/dL (0.4-1.0); *SPE BETA GLOBULIN 0.8 g/dL (0.7-1.3); *SPE GLOBULIN, TOTAL 3.4 g/dL (2.2-3.9); *SPE M-SPIKE Not Observed g/dL (Not Observed); *SPEGAMMA GLOBULIN 1.5 g/dL (0.4-1.8)
[2019-08-05] MEDS: LORAZEPAM INJ 2 MG/ML VIAL IV PRN (16:16)
--- NOTE | 2019-08-05 16:16 | NUR ---
rn notes per patient, he can't rest and stay still. patient requested ativan. ativan 1mg IV given as ordered.
[2019-08-05 16:17] VITALS: BP 144/90
[2019-08-05] MEDS: ATORVASTATIN 10 MG TABLET PO SCH (17:04)
[2019-08-05] MEDS: METOPROLOL TARTRATE 25 MG TABLET PO SCH (17:35)
[2019-08-05] MEDS ORDERED: POLYVINYL ALCOHOL 15 ML BOTTLE EACHEYE PRN (19:30)
--- NOTE | 2019-08-05 19:32 | NUR ---
MS/RN OPENING NOTES: RECEIVED PATIENT IN RESTING IN BED. A/OX2. CALM AND COOPERATIVE. VERBALLY RESPONSIVE AND ABLE TO MAKE NEEDS KNOWN. SITTER AT BEDSIDE FOR SAFETY. NO SOB NOTED, NO S/S OF ACUTE DISTRESS, NO C/O PAIN AT THIS TIME. BREATHING EVEN AND UNLABORED. IV SITE ON THE RIGHT FA #20G INTACT AND PATENT WITH NS RUNNING AT 125ML/HR. SAFETY MEASURES IN PLACE. BED IN LOW/LOCKED POSITION, SIDE RAILS UPX2, CALL LIGHT WITHIN REACH. WILL CONTINUE TO MONITOR ACCORDINGLY.
[2019-08-05 20:00] VITALS: BP 121/83
[2019-08-05] MEDS: QUETIAPINE FUMARATE 100 MG TABLET PO SCH (21:19)
[2019-08-05 22:53] VITALS: BP 121/83
--- NOTE | 2019-08-06 06:22 | NUR ---
MS/RN CLOSING NOTES: PATIENT AWAKE IN BED. A/OX2. NO SOB NOTED, NO S/S OF ACUTE DISTRESS, NO C/O PAIN AT THIS TIME. BREATHING EVEN AND UNLABORED. SITTER AT BEDSIDE FOR SAFETY. IV SITE ON THE RIGHT FA #20G INTACT AND PATENT WITH NS RUNNING AT 125ML/HR. KEPT PT WARM AND COMFORTABLE THROUGHOUT THE SHIFT. ALL NURSING NEEDS MET AND PROVIDED. ALL DUE MEDS ADMINISTERED ORDERED. TOLERATED WELL. SAFETY MEASURES KEPT IN PLACE. BED IS IN LOW, LOCKED POSITION WITH HOB ELEVATED. CALL LIGHT WITHIN EASY REACH. WILL ENDORSE TO DAY SHIFT NURSE FOR JULIANA.
[2019-08-06 07:04] LABS: EOSINOPHILS % (AUTO) 2.7 % (0.0-6.0); HEMATOCRIT 30 % (39-51); HEMOGLOBIN 9.9 g/dL (13.5-17.5); LYMPHOCYTES # (AUTO) 1.6 /CMM (0.8-4.8); LYMPHOCYTES % (AUTO) 38.3 % (20.0-44.0); MEAN CORPUSCULAR HGB CONC 33 g/dl (31.0-36.0); MEAN CORPUSCULAR VOLUME 93 fL (80-96); MONOCYTES # (AUTO) 0.3 /CMM (0.1-1.30); MONOCYTES % (AUTO) 7.9 % (2.0-12.0); NEUTROPHILS # (AUTO) 2.1 /CMM (1.8-8.9); NEUTROPHILS % (AUTO) 50.1 % (43.0-81.0); PLATELET COUNT (AUTO) 189 /CMM (150-450); RED BLOOD CELL COUNT(AUTO) 3.18 MIL/uL (4.5-6.0); WHITE BLOOD COUNT (AUTO) 4.1 K/uL (4.3-11.0)
[2019-08-06] MEDS ORDERED: KEY,NONCONTROL,TO KEEP IN PYXI 1 EA MC ONE ×3 (07:05→16:05)
[2019-08-06 07:13] LABS: CALCIUM, SERUM 8.3 mg/dL (8.5-10.1); CREATININE 1.1 mg/dL (0.6-1.3); MAGNESIUM 1.7 mg/dL (1.8-2.4); PHOSPHORUS 2.7 mg/dL (2.5-4.9); POTASSIUM 4.6 mmol/L (3.5-5.1)
--- NOTE | 2019-08-06 08:00 | NUR ---
m/s deboning team leader: initial assessment received pt in bed awake, a/ox4. no c/o pain or any discomfort. pt has periods of anxiety. sitter at bedside. encourage to verbalized feelings. instructed to call for assistance.
[2019-08-06 08:47] VITALS: BP 150/85
[2019-08-06] MEDS: DULOXETINE HCL 30 MG CAPSULE.DR PO SCH (08:47)
[2019-08-06] MEDS: DOXAZOSIN MESYLATE (4 MG) 4 MG TABLET PO SCH (08:47)
[2019-08-06] MEDS: METOPROLOL TARTRATE 25 MG TABLET PO SCH (08:47)
[2019-08-06] MEDS: GABAPENTIN 400 MG CAPSULE PO SCH ×2 (08:47→14:20)
[2019-08-06] MEDS: NALOXONE HCL SL SCH (08:48)
[2019-08-06] MEDS: NICOTINE PATCH (21MG) 21 MG PATCH.TD24 TD SCH (08:48)
[2019-08-06] MEDS: BUPRENORPHINE HCL SL SCH (08:48)
[2019-08-06] MEDS: QUETIAPINE FUMARATE 25 MG TABLET PO SCH (08:48)
[2019-08-06] MEDS: Magnesium 1GM/D5W 100ML PREMIX 100 ML IV SCH ×2 (09:39→10:40)
--- NOTE | 2019-08-06 10:00 | NUR ---
m/s title i coordinator: notes in bed resting quietly. no distress noted.
--- NOTE | 2019-08-06 12:12 | NUR ---
m/s amusement equipment operator: notes lab called for ck mb result=19.1. errol saez ([facility]) made aware.
--- NOTE | 2019-08-06 14:00 | NUR ---
m/s job spotter: notes in bed awake, resting comfortable. sitter at bedside.
--- NOTE | 2019-08-06 15:00 | NUR ---
m/s certified professional coder: notes informed errol saez ([facility]) re: ua culture result. pt for d'c planning today to snf.
--- NOTE | 2019-08-06 15:30 | NUR ---
m/s independent jeweler: notes cn informed me that pt is leaving at 1700 to go to snf ([facility]). pt made aware and upset about it, pt wants to go home. pt has a dpoa and case management called the dpoa re: discharge planning to snf. per case management, dpoa will call pt.
--- NOTE | 2019-08-06 16:00 | NUR ---
m/s inspector line: notes still awaiting for dpoa to call pt. pt still doesn't want to go to snf. case management and cn aware.
--- NOTE | 2019-08-06 16:25 | NUR ---
m/s jaclyn: lainey maurer (case management) called and spoke to pt's dpoa and wants him discharge home instead of snf. errol ([facility]) notified and made aware. awaiting for order. pt needs prescription. Addendum: 08/06/19 at 1641 by TRAMAINE ROBLEDON per case management, pt will arrange willem himself and his dpoa is aware.
[2019-08-06] MEDS ORDERED: SULF1TAB48 PO (16:26)
--- NOTE | 2019-08-06 16:30 | NUR ---
m/s maintenance supervisor 2nd shift: notes spoke to pt and will arrange lyft instead of uber as a transportation. awaiting order and prescription from the doctor.
--- NOTE | 2019-08-06 16:50 | NUR ---
m/s sample coordinator: notes e script done by errol for po antibiotic, pt made aware and will pick it up at preferred pharmacy ([facility]). pt refused discharge photos on scratch mathews.
--- NOTE | 2019-08-06 17:00 | NUR ---
m/s oil expeller: notes discharge instructions given to pt with e script for bactrim prescription given to pt and pt verbalized understanding. h/l removed with tip intact. pt to call lyft for transportation.
--- NOTE | 2019-08-06 17:13 | NUR ---
m/s milled rubber tender: notes pt wants his dinner and then will leave. all valuables returned to pt.
--- NOTE | 2019-08-06 17:25 | NUR ---
m/s retail product advisor: discharged pt will call missy once he is out of the hospital and wants to smoke. discharge in stable condition with all valuables, meds, and d'c papers copy.
[2019-08-06] MEDS ORDERED: NITR100C PO (17:26)
== END 2019-08-06 17:30 | disposition home or self-care (01) | DRG 557 ==
LOC: ER 19:00 → TELE 22:34 → MED 08-03 09:16
PROVIDERS: ADMIT Internal Medicine; ATTEND Hospitalist
DX: M62.82 Rhabdomyolysis (principal); N17.0 Acute kidney failure with tubular necrosis; N39.0 Urinary tract infection, site not specified; G61.81 Chronic inflammatory demyelinating polyneuritis; D63.8 Anemia in other chronic diseases classified elsewhere; F20.9 Schizophrenia, unspecified; F17.200 Nicotine dependence, unspecified, uncomplicated; F32.9 Major depressive disorder, single episode, unspecified; Z90.49 Acquired absence of other specified parts of digestive tract; Z91.19 Patient's noncompliance with other medical treatment and regimen; B95.2 Enterococcus as the cause of diseases classified elsewhere; R74.8 Abnormal levels of other serum enzymes; F39 Unspecified mood [affective] disorder; F12.10 Cannabis abuse, uncomplicated; F15.90 Other stimulant use, unspecified, uncomplicated; R19.7 Diarrhea, unspecified; G47.33 Obstructive sleep apnea (adult) (pediatric); I12.9 Hypertensive chronic kidney disease with stage 1 through stage 4 chronic kidney disease, or unspecified chronic kidney disease; N18.9 Chronic kidney disease, unspecified
CPT/HCPCS: 36415; 71045-TC; 80048-TC; 80053-TC; 80061-TC; 80076-TC; 80305; 81000-TC; 82272-TC; 82550-TC; 83690-TC; 83735-TC; 83970; 84100-TC; 84155; 84165; 84484-TC; 85025-TC; 85652-TC; 85730-TC; 86225; 86235; 86706; 86803; 87081-TC; 87086-TC; 87186-TC; 87340; G0378; J1630; J2060; J2405; J3475; J7030

== ENCOUNTER 2021-02-22 03:57 | Emergency (ER) | payer MEDICARE, OTHER ==
[~2021-02-22] VITALS: Ht 182.9 cm; Wt 89.4 kg
[2021-02-22 03:57] VITALS: BP 130/78
[~2021-02-22 03:57] MED LIST: ABAC1TAB15 PO; BUPR1TAB SL; DOXA4TAB2 PO; DOXE10OR2 PO; DULO60CA45 PO; GABA800T11 PO; NITR100C PO; ROPI5TAB PO; ROSU5TAB PO; SUVO20TA PO
--- NOTE | 2021-02-22 04:28 | NUR ---
Patient does not wish to proceed with medical care recommended by Dr. Manuel. Patient given information related to possible complications, up to and including , which could occur as a result of leaving the hospital at this time. Patient verbalizes understanding of risks involved due to leaving against medical advice. Patient has signed AMA form.
== END 2021-02-22 05:14 | disposition left against medical advice (07) ==
LOC: ER 04:01
DX: G89.29 Other chronic pain (principal); I10 Essential (primary) hypertension; G90.9 Disorder of the autonomic nervous system, unspecified; Z79.899 Other long term (current) drug therapy